=== PATIENT | female | born 1950 | race Hispanic/Latino ===

== ENCOUNTER 2017-01-26 08:50 | Outpatient (CLI) | payer MEDICARE ==
--- NOTE | 2017-01-27 14:11 | Mammography Report ---
BILATERAL DIGITAL SCREENING MAMMOGRAM with CAD : 01/26/17 08:50:00 CLINICAL: Routine screening. COMPARISON:12/17/15 FINDINGS: The breasts are heterogeneously dense, which may obscure small masses. No new mass, architectural distortion or suspicious calcifications. IMPRESSION: No mammographic evidence of malignancy. BI-RADS CATEGORY: 2 -- Benign RECOMMENDATION: Routine mammographic screening in one year. COMMENT: Patient follow-up letters are generated by our [employer] application.
== END 2017-01-26 08:51 | disposition home or self-care (01) ==
LOC: SPVWC 08:50
DX: Z12.31 Encounter for screening mammogram for malignant neoplasm of breast (principal)
CPT/HCPCS: 77067; G0202

== ENCOUNTER 2017-09-18 12:58 | Emergency (ER) | payer MEDICARE ==
[2017-09-18 13:49] VITALS: BP 140/77
[2017-09-18 14:18] LABS: Bilirubin,Urine NEG (Negative); Blood,Urine NEG (Negative); Ketones,Urine NEG (Negative); Leukocyte Esterase,Urine NEG (Negative); Nitrite,Urine NEG (Negative); Protein,Urine <15 mg/dL mg/dL (Negative)
--- NOTE | 2017-09-18 14:35 | Emergency Department Report ---
HPI - General Chief Complaint: Back Pain/Injury Time Seen by Provider: 09/18/17 13:43 - HPI HPI: Room 29 The patient is a 67-year-old female presenting with a chief complaint of left buttocks pain. The patient states 2 weeks ago she was assisting a 400 pound patient when the patient fell back into her causing her to fall directly on her buttocks. Patient complains of pain in the left buttocks constantly since the fall. Patient denies pain elsewhere. Location: Left buttocks Duration: 2 weeks Quality: Pain Severity:08/29 Modifying factors: [see above] Context: [see above] Mode of transportation: [not driving] ED Past Medical Hx - Past Medical History Hx Psychiatric Treatment: Yes (depression, anxiety) Additional medical history: high cholesterol - Surgical History Additional Surgical History: knee repair - Social History Smoking Status: Never Smoker Substance Use Type: None - Medications Home Medications: Home Medications Medication Instructions Recorded Confirmed Last Taken Type Ibuprofen [Motrin 800 MG tab] 800 mg PO Q8HR PRN #20 tablet 09/18/17 Unknown Rx oxyCODONE /ACETAMINOPHEN [Percocet 1 - 2 tab PO Q6HR PRN #20 tablet 09/18/17 Unknown Rx 5/325] ED Review of Systems ROS: Stated complaint: BACK PAIN Other details as noted in HPI Physical Exam - Physical Exam Vital Signs: Vital Signs 09/18/17 13:45 Temperature 97.6 F Pulse Rate 85 Respiratory 20 Rate Blood Pressure 140/77 O2 Sat by Pulse 97 Oximetry ED Course Vital Signs 09/18/17 13:45 Temperature 97.6 F Pulse Rate 85 Respiratory 20 Rate Blood Pressure 140/77 O2 Sat by Pulse 97 Oximetry - Consultations Consultation #1: 09/18/17 14:56 Orthopedic surgery paged 09/18/17 15:[address] Morocho-recommends patient obtained back brace for medical supply store and follow up with him in the office ED Medical Decision Making - Radiology Data Radiology results: image reviewed (lumbar spine x-ray, left hip x-ray) interpreted by me: Left Hip xray- no acute fx Lumbar spine xr- L1 compression deformity unknown age. Mild subluxation of L4 on L5 - Differential Diagnosis sciatica, lumbar radiculopathy, hip fracture, spine fracture Critical care attestation.: If time is entered above; I have spent that time in minutes in the direct care of this critically ill patient, excluding procedure time. ED Disposition Clinical Impression: Closed compression fracture of L1 lumbar vertebra Disposition: DC- TO HOME OR SELFCARE Is pt being admited?: No Does the pt Need Aspirin: No Condition: Stable Additional Instructions: Return to the emergency department immediately should you develop worsening symptoms, fever, inability to tolerate food or liquid or any other concerns. Prescriptions: Ibuprofen [Motrin 800 MG tab] 800 mg PO Q8HR PRN #20 tablet PRN Reason: Pain oxyCODONE /ACETAMINOPHEN [Percocet 5/325] 1 - 2 tab PO Q6HR PRN #20 tablet PRN Reason: Pain Referrals: PRIMARY CARE, [Primary Care Provider] - 3-5 Days BALDEMAR MOROCHO MD [Staff Physician] - [facility] (Dr. Morocho is an orthopedic surgeon. Please follow up with him for further evaluation) Time of Disposition: 15:18
[2017-09-18] MEDS ORDERED: MORPHINE IM ONE (14:51)
[2017-09-18] MEDS ORDERED: ZOFRAN IM ONE (14:51)
[2017-09-18] MEDS ORDERED: TORADOL IM ONE (14:51)
[2017-09-18] MEDS ORDERED: MORPHINE ONE (15:03)
--- NOTE | 2017-09-18 16:45 | XRay Report ---
LEFT HIP RADIOGRAPHS INDICATION: Pain after fall. COMPARISON: None similar. FINDINGS: An AP pelvic radiograph with frog-leg projection of the left hip demonstrate normal femoral head contours. Imaged bilateral SI and hip joints appear intact. Nonobstructive bowel gas pattern. Bladder tacking surgery. Lower lumbar degenerative changes. Nonobstructive bowel gas pattern. Possible osteopenia. CONCLUSION: No acute hip radiographic abnormality with few other findings, as above. Thank you for the opportunity to participate in this patient's care.
--- NOTE | 2017-09-18 16:49 | XRay Report ---
LUMBAR SPINE RADIOGRAPHS INDICATION: Pain after fall. COMPARISON: None similar. FINDINGS: AP and lateral lumbar spine radiographs demonstrate approximately 4 mm anterolisthesis of L4-L5. Mild L3-L5 endplate degenerative spurring. Lower lumbar facet arthropathy also suspected. Mild anterior wedging of L1 vertebral body with approximately 30% loss of height, exact age indeterminate. Mild L4-L5 disc narrowing possible. Lower thoracic spine degenerative spurring. Aortic atherosclerotic calcifications. Possible cholecystectomy clips. Intact SI joints. Nonobstructive bowel gas pattern. CONCLUSION: 1. Mild L1 compression fracture, exact age indeterminate though not excluded acute in light of provided history. MRI would help further characterize, if warranted. Please correlate clinically. 2. Various other findings, including degenerative and postsurgical changes, as above. Thank you for the opportunity to participate in this patient's care.
== END 2017-09-18 15:28 | disposition home or self-care (01) ==
LOC: ED 12:58
DX: M48.56XA Collapsed vertebra, not elsewhere classified, lumbar region, initial encounter for fracture (principal); R78.5 Finding of other psychotropic drug in blood
CPT/HCPCS: 72100; 73502; 81001; 96372; 99283; J1885; J2270; J2405

== ENCOUNTER 2018-02-01 10:44 | Outpatient (CLI) | payer MEDICARE ==
--- NOTE | 2018-02-01 14:11 | Mammography Report ---
Screening mammogram: Routine views are compared to prior exams dating back to 2016. Scattered asymmetries bilaterally remain unchanged as does the remainder of the overall breast pattern. There is an intermediate density fibroglandular tissue. CAD used. Impression: Stable pattern. Recommendation: Annual mammogram followup. BI-RADS CATEGORY: 2 = Benign ACR BI-RADS MAMMOGRAPHIC CODES: 0 = Needs additional imaging evaluation; 1 = Negative; 2 = Benign; 3 = Probably benign; 4 = Suspicious; 5 = Malignant; 6 = Known biopsy-proven malignancy COMMENT: 1. Dense breast tissue, i.e., adenosis, fibrocystic changes, etc., may obscure an underlying neoplasm. 2. Approximately 10% of cancers are not detected with mammography. 3. A negative mammography report should not delay biopsy if a clinically suspicious mass is present.
== END 2018-02-01 10:45 | disposition home or self-care (01) ==
LOC: SPVWC 10:44
DX: Z12.31 Encounter for screening mammogram for malignant neoplasm of breast (principal)
CPT/HCPCS: 77067

== ENCOUNTER 2018-04-24 10:46 | Outpatient (CLI) | payer MEDICARE ==
--- NOTE | 2018-04-24 13:52 | XRay Report ---
XRAY CERVICAL SPINE THREE VIEWS: 04/24/18 10:46:00 CLINICAL: Pain FINDINGS: Mild lower cervical dextroscoliosis. Grade I C3-4 spondylolisthesis and grade I C5-6 retrolisthesis. Widening of the disc space at C3-4 and narrowing of the disc space at C5-6. Disc space narrowing at C4-5 and C6-7. Moderate-sized anterior osteophytes from C5-6 through C6-7. No fracture. The odontoid and C1 are intact. Minimal facet joint sclerosis. Normal soft tissues and airway. IMPRESSION: Lower cervical dextroscoliosis and multilevel degenerative disc disease. Grade I C3-4 spondylolisthesis and grade I C5-6 retrolisthesis. Recommend flexion and extension views to evaluate for instability at those levels.
--- NOTE | 2018-04-25 08:38 | Mammography Report ---
BONE DEXA:04/24/18 10:46:00 CLINICAL: Postmenopausal. No comparison. TECHNIQUE: Two site bone DEXA performed on an Hologic scanner. FINDINGS: The average BMD of the lumbar spine L1-L4 is 1.236g/cm squared with a T-score of +1.7 and a Z-score of +3.6. The average BMD of the left hip is 1.126g/cm squared with-score of +1.5 and a Z-score of is 2.8. IMPRESSION: WHO classification: Normal with average fracture risk based on L-spine and left to measurements. RECOMMENDATION: Clinical correlation and routine screening. DEFINITIONS: BMD = Bone Mineral Density T-score = BMD related to mean peak bone mass of young adult (mean expressed in Standard Deviation) Z-score = Age matched BMD expressed in SD World Health Organization (WHO) Diagnostic Criteria Normal T-score > -1 SD Osteopenia T-score between -1 and -2.4 SD Osteoporosis T-score -2.5 SD or below NOTE: BMD is not the only risk factor for fracture. One should also consider factors such as the patient's age, risk of falling, previous osteoporotic fracture, family history of osteoporotic fractures, current smoker, and low body weight. Z-scores are not calculated if >80 years of age.
== END 2018-04-24 10:47 | disposition home or self-care (01) ==
LOC: SPVWC 10:46
DX: M81.0 Age-related osteoporosis without current pathological fracture (principal); M41.82 Other forms of scoliosis, cervical region; M47.892 Other spondylosis, cervical region; M50.30 Other cervical disc degeneration, unspecified cervical region; M25.78 Osteophyte, vertebrae
CPT/HCPCS: 72040; 77080